=== PATIENT | female | born 1935 | race Caucasian/White ===

== ENCOUNTER 2017-04-22 12:35 | Day surgery (SDC) | payer MEDICARE ==
[~2017-04-22] VITALS: Ht 177.8 cm; Wt 89.8 kg
[~2017-04-22 12:35] MED LIST: ACET-2605 PO; AMLO5TAB2 PO; ASCO100089 PO; ASPI-973 PO; CHOL200025 PO; LEVO100T6 PO; LISI40TA PO; METO200T32 PO; MULT-1018 PO; Sodium Chloride LOK Flush 10 mL Syringe IV PRN; fentaNYL-PF 50 mCg/mL 2 mL Inj IVPUSH PRN
[2017-04-22] MEDS ORDERED: fentaNYL-PF 50 mCg/mL 2 mL Inj IVPUSH ONE (12:36)
[2017-04-22 12:58] VITALS: BP 125/76; PULSE 64; RESP 16; O2SAT 98
[2017-04-22] MEDS: 0.9% Sodium Chloride 1,000 ML IV PRN ×3 (13:02→14:40)
[2017-04-22 14:49] VITALS: BP 138/73; PULSE 58; RESP 14; O2SAT 97
[2017-04-22 15:02] VITALS: BP 121/67; PULSE 58; RESP 16; O2SAT 96
[2017-04-22 15:04] VITALS: BP 137/73; PULSE 67; RESP 16; O2SAT 99
--- NOTE | 2017-04-22 15:58 | ENDO ---
[address] [address] ENDOSCOPY PROCEDURE PATIENT: JANET SCHMIDT : 1935 MR#: [id number] ADMIT: 04/22/2017 JOB ID: [id number] DATE: 04/22/2017 PRIMARY PROVIDER: Paulo Canada MD. PROCEDURE: Colonoscopy with hot snare polypectomy and cold forceps polypectomy. INDICATIONS: A 81-year-old female with a personal history of colon polyps. EQUIPMENT: PCF-H180 AL. SEDATION: 5 mg Versed and 125 mcg fentanyl. COMPLICATIONS: None identified. BOWEL PREPARATION: Fair, adequate exam. PROCEDURE INFORMATION: After the risks and benefits were explained, written and verbal informed consent was obtained, the patient was brought into the endoscopy suite and placed into the left lateral decubitus position. Sedation was achieved using the above-stated medications with the addition of oxygen via nasal cannula. A digital rectal examination was accomplished. No significant pathology appreciated apart from some mild internal hemorrhoids. The scope was introduced into the rectum and advanced under direct visualization to the cecum as identified by the appendiceal orifice and ileocecal valve. The scope was slowly withdrawn to carefully examine the mucosa for any defects or lesions. Retroflexed views were accomplished in the rectum. The colon was decompressed, the scope removed from the patient who tolerated the procedure well. FINDINGS: Some scattered diverticula in the left colon. Throughout the transverse and ascending, there were seven polyps seen and removed. The two largest were about 5 mm each and hot snare was utilized for these. All of the more diminutive polyps were removed with cold forceps. These were submitted as "colon polyps." I did not appreciate any other significant pathology throughout including retroflexed views from within the rectum. ENDOSCOPIC DIAGNOSES: 1. Multiple colon polyps. 2. Diverticulosis. 3. Hemorrhoids. RECOMMENDATIONS: 1. Await histopathology. 2. Repeat colonoscopy in three years. I would once again recommend an hour slot. Navigation was again challenging.
--- NOTE | 2017-04-24 10:55 | PATH ---
SURGICAL PATHOLOGY Attending Physician:Basil Brown CASE STATUS: Signed Out PATIENT NAME: JANET SCHMIDT PID: [id number] : 1935 DATE COLLECTED:04/22/2017 00:00 SPECIMEN: Colon, Polyp CLINICAL HISTORY: 1. COLON POLYPS X7 FINAL DIAGNOSIS: 1.COLON POLYPS: TUBULAR ADENOMA INVOLVING MULTIPLE BIOPSY FRAGMENTS. HYPERPLASTIC POLYP INVOLVING SINGLE BIOPSY FRAGMENT. ICD10 D12.6 GROSS DESCRIPTION: The specimen is received in one formalin filled container labeled with the patient's name, sublabeled "colon polyps" and consists of multiple portions of tissue which aggregate to 0.6 x 0.5 x 0.3 CM. The specimen is entirely submitted in one cassette. 04/23/2017 [facility] MICRO DESCRIPTION: See diagnosis. ICD-9 CODES: CPT CODES: 1: 40793 Electronically Signed Out Alexandru Ball MD [facility] Pathology [facility] [address], [place] [address] Technical component performed at [facility], [facility] [address], [address]
== END 2017-04-22 23:59 | disposition home or self-care (01) ==
LOC: END 12:35
PROVIDERS: ATTEND Internal Medicine Gastroenterology
DX: Z12.11 Encounter for screening for malignant neoplasm of colon (principal); Z86.010 Personal history of colon polyps; D12.6 Benign neoplasm of colon, unspecified; K57.30 Diverticulosis of large intestine without perforation or abscess without bleeding; K64.9 Unspecified hemorrhoids; I10 Essential (primary) hypertension; E78.5 Hyperlipidemia, unspecified; R06.00 Dyspnea, unspecified; Z79.82 Long term (current) use of aspirin
CPT/HCPCS: 45380; 45385; 99153; G0500; J2250; J3010; J7030